=== PATIENT | female | born 1990 | race Caucasian/White ===

== ENCOUNTER → 2020-03-09 08:49 | Outpatient (BNVA) | payer MEDICAID, SELFPAY | PROVIDERS: Family Provider Family Medicine; Visit Provider Psychiatry & Neurology Psychiatry | DX: F41.1 Generalized anxiety disorder (principal); F90.2 Attention-deficit hyperactivity disorder, combined type; F43.10 Post-traumatic stress disorder, unspecified; Z72.820 Sleep deprivation | CPT/HCPCS: 90792 ==

== ENCOUNTER → 2020-04-29 10:47 | Outpatient (BNVA) | payer MEDICAID, SELFPAY | PROVIDERS: Family Provider Family Medicine; Visit Provider Psychiatry & Neurology Psychiatry | DX: F90.9 Attention-deficit hyperactivity disorder, unspecified type (principal); F90.2 Attention-deficit hyperactivity disorder, combined type; F43.10 Post-traumatic stress disorder, unspecified | CPT/HCPCS: 99213 ==

== ENCOUNTER → 2020-07-19 14:01 | Outpatient (BNVA) | payer MEDICAID, SELFPAY | PROVIDERS: Family Provider Family Medicine; Visit Provider Psychiatry & Neurology Psychiatry | DX: F90.2 Attention-deficit hyperactivity disorder, combined type; F43.10 Post-traumatic stress disorder, unspecified | CPT/HCPCS: 99214 ==

== ENCOUNTER 2020-10-15 20:01 | Emergency (ER) | payer MEDICAID, SELFPAY ==
[2020-10-15 20:09] VITALS: BP 121/75; PULSE 104; RESP 18; TEMP 36.7; O2SAT 97; BMI 36.8
--- NOTE | 2020-10-15 20:37 | W.ED.DENTAL ---
HPI - Dental/Oral General: Chief complaint: Dental/Oral Stated complaint: oral pain/n/v Time Seen by Provider: 10/15/20 20:24 Source: patient Mode of arrival: ambulatory Limitations: no limitations History of Present Illness: HPI Narrative: Patient is a 29-year-old female who presents to ED today with a complaint of right lower dental pain over the past few days. Patient states she woke up and noticed the right side of her face was swollen. She is not having any trouble swallowing. No fevers. MD Complaint: tooth pain (facial swelling) Onset (ago): day(s) Duration: constant Relieving factors: nothing Associated symptoms: Denies ear or mastoid pain, fever(s) or odynophagia Treatment prior to arrival: other (ibuprofen/tylenol) Review of Systems Const: Denies: fever(s), chills, body aches, fatigue or malaise Eyes: Denies: change in vision or blurry vision ENMT: Reports: dental pain; Denies: throat pain, enlarged tonsils, odynophagia, bleeding gums, ear or mastoid pain, ear discharge, nasal discharge, nasal congestion, post nasal drip or sinus pain Card: Denies: chest pain Resp: Denies: dyspnea GI: Denies: nausea or vomiting Musc: Denies: neck pain Skin/Breast: Denies: rash Neuro: Denies: headache(s) PFS ED PFSH: Medical History (Updated 10/15/20 @ 21:01 by VIVIAN Colon) ADHD PTSD (post-traumatic stress disorder) Social History (Updated 03/09/20 @ 09:00 by Susanne Tomas LPN) Smoking and tobacco status: current every day smoker e-cigarettes E-Cigarette Details: vaporizer device E-cig/vape details: 3mg Quit status (tobacco): not considering quitting Second hand smoke exposure: Yes Current gender identity: Female Female Reproductive History: Date of last menstrual period: 09/21/20 Physical Exam Const: COMMON NORMALS: no acute distress, patient oriented x3, no limitations and alert GENERAL APPEARANCE: cooperative HENMT: COMMON NORMALS: normocephalic, atraumatic, Normal nasal mucous membranes and turbinates present, moist oral mucous membranes and oropharynx normal HEAD & SCALP: normal to inspection, normocephalic and atraumatic FACE & SINUS: sinuses nontender FACE & SINUS IMAGES: 1. swelling; no drainable abscess at this time NOSE: Normal nasal mucous membranes and turbinates present TEETH & GINGIVA IMAGES: 1. severe dental caries Neck/C-Spine: COMMON NORMALS: full ROM and no lymphadenopathy OTHER: no submandibular swelling Neuro: COMMON NORMALS: patient oriented x3 SENSORIUM/ORIENTATION: Yes alert Course Vital Signs: Vital signs: Vital Signs Temperature 98.1 F 10/15/20 20:09 Pulse Rate 104 H 10/15/20 20:09 Respiratory Rate 18 10/15/20 20:09 Blood Pressure 121/75 10/15/20 20:09 Pulse Oximetry 97 10/15/20 20:09 Discharge Plan Discharge Patient Disposition: Home Clinical Impression: Dental caries, Dental abscess Condition: Stable Prescriptions: New clindamycin HCl 300 mg capsule 300 mg PO Q6H 7 Days Qty: 28 RF: 0 acetaminophen-codeine 300-30 mg tablet 1 tab PO Q6H PRN (Reason: pain) Qty: 10 RF: 0 No Action cephalexin [Keflex] 500 mg capsule 500 mg PO QID Qty: 40 RF: 0 dextroamphetamine-amphetamine [Adderall XR] 10 mg capsule,extended release 24hr 10 mg PO QAM 30 Days Qty: 30 RF: 0 Discharge Orders: Discharge ED (Routine); Ordered 10/15/20 Ordered By: Ailyn Jain Referrals: Chacorta Earl MD [Primary Care Provider] - Patient Instructions: Dental Caries (ED), Dental Abscess Coding Level of Care Code ED Sales Account Associate for Ezekiel Lorenzo
== END 2020-10-15 21:09 | disposition home or self-care (01) ==
PROVIDERS: Emergency Provider Physician Assistant; PCP Family Medicine
DX: K02.9 Dental caries, unspecified (principal); K04.7 Periapical abscess without sinus; F17.290 Nicotine dependence, other tobacco product, uncomplicated
CPT/HCPCS: 99282

== ENCOUNTER 2020-12-19 19:58 | Emergency (ER) | payer MEDICAID, SELFPAY ==
[2020-12-19 20:06] VITALS: BP 131/83; PULSE 75; RESP 15; TEMP 36.8; O2SAT 97; BMI 39.1
--- NOTE | 2020-12-19 20:20 | XRR_ITS ---
PROCEDURE INFORMATION: Exam: XR Abdomen Exam date and time: 12/19/2020 8:20 PM Age: 29 years old Clinical indication: Abdominal pain; Other: RT. Side; Prior surgery; Surgery date: 6+ months; Surgery type: ; Additional info: Abd pain TECHNIQUE: Imaging protocol: XR of the abdomen. Views: 2 Views. Upright and supine views. COMPARISON: US abdomen limited [id number] 12/21/2014 12:10 PM FINDINGS: Gastrointestinal tract: Normal. No bowel dilation. Intraperitoneal space: Normal. No free air. Bones/joints: Unremarkable for age. XR/XR abdomen min 2V [id number] IMPRESSION: No acute findings.
--- NOTE | 2020-12-19 20:20 | W.ED.ABDPA2 ---
HPI - Abdominal Pain General: Chief Complaint: Abdominal Pain Stated Complaint: lower abd pain/fever Time Seen by Provider: 12/19/20 20:17 History of Present Illness: HPI narrative: This patient is a 29-year-old female who presents to the emergency department with complaint of right lower quadrant abdominal pain superficially in her groin area. Patient states she feels like there is a knot in her groin. Patient also describes low-grade chills but denies taking her temperature. Patient states she has had loose stool intermittently for the past 3 to 4 days. Patient does not appear to be acutely sick. Patient's complaints appear to be nonspecific. Vital signs are stable negative exam. Will do medical evaluation treat MD elicited complaint: abdominal pain Pertinent past history: none Onset (ago): day(s) Pain Consistency: intermittent Severity: mild Associated Symptoms: Reports diarrhea; Denies chills, dysuria, fever(s), nausea and vomiting Related Data: Date of Last Menstrual Period: 11/30/20 Review of Systems General: Reports: 10 or more systems reviewed and unremarkable except in HPI and below Const: Denies: fever(s), chills, body aches or fatigue Eyes: Denies: change in vision or blurry vision ENMT: Denies: throat pain, hoarseness or mouth pain Card: Denies: chest pain, palpitations, irregular heart rhythm, edema, swelling of feet/ankles or lightheadedness Resp: Denies: dyspnea, productive cough, non-productive cough, wheezing or pain on inspiration GI: Reports: abdominal pain and diarrhea; Denies: nausea or vomiting : Denies: flank pain, difficulty voiding, dysuria, urinary frequency, urinary urgency or urinary hesitancy Musc: Denies: neck pain, back pain, extremity pain, extremity swelling, joint pain, joint swelling, joint redness, joint warmth or limited range of motion Skin/Breast: Denies: rash, pruritus, erythema or skin tenderness Neuro: Denies: headache(s), numbness in extremities or weakness in extremities Psych: Denies: anxiety or depression PFSH ED PFSH: Medical History ADHD PTSD (post-traumatic stress disorder) Social History Smoking and tobacco status: current every day smoker e-cigarettes E-Cigarette Details: vaporizer device E-cig/vape details: 3mg Quit status (tobacco): not considering quitting Second hand smoke exposure: Yes Current gender identity: Female Female Reproductive History: Date of last menstrual period: 11/30/20 Physical Exam Const: COMMON NORMALS: no acute distress, average body habitus, patient oriented x3, no limitations, healthy appearing, alert and well nourished HENMT: COMMON NORMALS: normocephalic, atraumatic, hearing grossly normal bilaterally, external ears normal, EAC's normal, TM's normal bilaterally, Normal external nose present, Normal nasal mucous membranes and turbinates present, moist oral mucous membranes, oropharynx normal, dentition normal and gingiva normal HEAD & SCALP: normocephalic and atraumatic NOSE: Normal external nose present and Normal nasal mucous membranes and turbinates present EXTERNAL EAR: Yes external ears normal EXTERNAL AUDITORY CANAL: EAC's normal TYMPANIC MEMBRANE: TM's normal bilaterally Neck/C-Spine: COMMON NORMALS: full ROM, no lymphadenopathy, supple, no meningeal signs, no JVD, Thyroid normal and No carotid bruits THYROID: Thyroid normal Chest: COMMONS NORMALS: normal inspection of the chest, normal palpation of entire chest wall, normal inspection of the breasts and normal palpation of the breasts Breast/axilla inspection: Yes normal inspection of the breasts BREAST/AXILLA PALPATION: Yes normal palpation of the breasts Resp: COMMON NORMALS: normal respiratory effort, No retractions, No use of accessory muscles, clear to auscultation bilaterally and percussion normal AUSCULTATION: clear to auscultation bilaterally PERCUSSION: percussion normal Cardio: COMMON NORMALS: no JVD, regular rate, regular rhythm, S1 normal heart sound present, S2 normal heart sound present, No gallops present (Cardio), No clicks present (Cardio), No murmurs present (Cardio), No rub (Cardio) and Peripheral pulses 2+ throughout RATE: regular rate RHYTHM: regular rhythm HEART SOUNDS: S1 normal heart sound present and S2 normal heart sound present PERIPHERAL PULSES: Peripheral pulses 2+ throughout GI: COMMON NORMALS: Normal to inspection, nondistended, normoactive bowel sounds present, Soft to palpation, non-tender, No hepatosplenomegaly present, no masses and no bruits PALPATION: Yes Soft to palpation and Yes No hepatosplenomegaly present Back/Pelvis: COMMON NORMALS: thoracic and lumbar spine normal to inspection, no thoracic nor lumbar tenderness, thoraco-lumbar ROM normal and straight leg raise negative bilaterally Extremity: COMMON NORMALS: normal to inspection, full ROM, capillary refill normal, no joint enlargement, no clubbing, cyanosis or edema, no calf tenderness and no pedal edema Neuro: COMMON NORMALS: patient oriented x3 SENSORIUM/ORIENTATION: Yes alert MENINGEAL SIGNS: Yes no meningeal signs Course Reevaluation(s): Reevaluation #1: Negative evaluation in the emergency department for any acute findings. Patient given reassurance. Encourage p.o. fluids. Tylenol Motrin as needed. Follow-up with PCP in 2 to 3 days. Time: 21:05 Vital Signs: Vital signs: Vital Signs Temperature 98.3 F 12/19/20 20:06 Pulse Rate 75 12/19/20 20:06 Respiratory Rate 15 12/19/20 20:06 Blood Pressure 131/83 12/19/20 20:06 Pulse Oximetry 97 12/19/20 20:06 MDM - Abdominal Pain MDM Narrative: Medical decision making narrative: Negative evaluation in the emergency department for any acute findings. Patient given reassurance. Encourage p.o. fluids. Tylenol Motrin as needed. Follow-up with PCP in 2 to 3 days. Differential Diagnosis: Differential diagnosis abdominal pain: Likely abdominal pain, acute appendicitis, calculus of kidney, constipation, diverticulitis, endometriosis, gastroenteritis, pancreatitis and small bowel obstruction Medical Records: Attestation: I reviewed the patient's medical records. Lab Data: Attestation: I reviewed the patient's lab results. Labs: Lab Results 12/19/20 12/19/20 Range/Units 20:45 20:45 HCG, Qual Negative (Negative) Urine Color Yellow (Yellow) Urine Appearance Clear (CLEAR) Urine pH 7 (5-7) Ur Specific Gravit y 1.010 (1.005-1.030) Urine Protein Neg (Negative) Urine Glucose (UA) Norm (Normal) Urine Ketones Negative (Negative) Urine Blood 3+ H (Negative) Urine Nitrate Negative (Negative) Urine Bilirubin Neg (Negative) Urine Urobilinogen Norm (Negative) mg/dL Ur Leukocyte Enriqueta ase Negative (Negative) Urine RBC >100 H (0-2) /hpf Urine WBC 0-4 H (0-5) /hpf Ur Squamous Epith Cells 0-4 H (0-5) /hpf Amorphous Sediment Not Reportable Urine Bacteria Trace (NONE) /hpf Discharge Plan Discharge Patient Disposition: Home Clinical Impression: Nonspecific abdominal pain, Passage of loose stools Condition: Stable Prescriptions: No Action cephalexin [Keflex] 500 mg capsule 500 mg PO QID Qty: 40 RF: 0 dextroamphetamine-amphetamine [Adderall XR] 10 mg capsule,extended release 24hr 10 mg PO QAM 30 Days Qty: 30 RF: 0 acetaminophen-codeine 300-30 mg tablet 1 tab PO Q6H PRN (Reason: pain) Qty: 10 RF: 0 Discharge Orders: Discharge ED (Routine); Ordered 12/19/20 Ordered By: Suman Sarabia Referrals: Chacorta Earl MD [Primary Care Provider] - Discharge Diet: Advance as tolerated Discharge Activity: Resume usual activity Patient Instructions: Opioid Safety, Abdominal Pain (ED) Activity Restrictions/Additional Instructions: Encourage p.o. fluids. Tylenol Motrin as needed as needed for pain. Ice packs as needed. Follow-up with PCP in 2 to 3 days. Pepto-Bismol as needed for loose stools. Coding Level of Care Code ED Traffic Engineering Director for Chg Fwd Exam Comprehensive
[2020-12-19 20:54] LABS: HCG Qualitative Urine. Negative (Negative)
[2020-12-19 21:00] LABS: Add Urine Microscopic? YES; Bilirubin Urine Neg (Negative); Blood Urine 3+ (Negative); Glucose Urine UA Norm (Normal); Ketones Urine Negative (Negative); Leukocyte Esterase Urine Negative (Negative); Nitrate Urine Negative (Negative); Protein Urine Neg (Negative); Urine Appearance Clear (CLEAR); Urine Color Yellow (Yellow); Urobilinogen Urine Norm (Negative); pH Urine 7 (5-7)
[2020-12-19 21:04] LABS: Add Urine Culture? Yes; Bacteria Urine TRACE /hpf; RBC Urine >100 /hpf (0-2); Squamous Epithelial Cell Urine 0-4 /hpf (0-5); WBC Urine 0-4 /hpf (0-5)
== END 2020-12-19 21:23 | disposition home or self-care (01) ==
PROVIDERS: Emergency Provider Emergency Medicine; PCP Family Medicine
DX: R10.9 Unspecified abdominal pain (principal); R19.7 Diarrhea, unspecified; F17.290 Nicotine dependence, other tobacco product, uncomplicated
CPT/HCPCS: 74019; 81001; 81025; 87086; 99283

== ENCOUNTER → 2021-01-17 13:00 | Outpatient (BNVA) | payer MEDICAID, SELFPAY | PROVIDERS: PCP Family Medicine; Visit Provider Psychiatry & Neurology Psychiatry | DX: F90.2 Attention-deficit hyperactivity disorder, combined type (principal); F43.10 Post-traumatic stress disorder, unspecified | CPT/HCPCS: 99214 ==

== ENCOUNTER 2021-03-11 13:54 | Emergency (ER) | payer MEDICAID, SELFPAY ==
[2021-03-11] VITALS (9 sets, daily range): BP systolic 100–149; BP diastolic 66–88; PULSE 61–100; RESP 18–32; TEMP 36.5–36.7; O2SAT 95–100; BMI 39.1
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
--- NOTE | 2021-03-11 17:24 | PC.NURSE ---
Pt to room 15. Pt to bathroom to change and collect urine sample. C Collar in place
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
[2021-03-11] MEDS: HYDROcodone-acetaminophen 5-325 mg Tablet 2 TAB PO (18:32)
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
--- NOTE | 2021-03-11 18:45 | PC.NURSE ---
pt c/o about itching and noted red hives on LE and it itches pain per pt. Pt stated she had taken Vicodin before and never had any problems before. Notified provider, provider to bedside.
[2021-03-11] MEDS: diphenhydrAMINE 50 mg Capsule PO (18:53)
--- NOTE | 2021-03-11 19:10 | PC.NURSE ---
pt appears to be sleepy per pt and no more itching. Pt stated I feel better Pain 5/10 and going lower per pt.
[2021-03-11 19:47] LABS: Basophils % 0.3 %; Eosinophils # 0.1 10^3/uL (0.0-0.8); Eosinophils % 1.1 %; Hematocrit 42.2 % (37.0-47.0); Hemoglobin 13.5 g/dL (11.5-15.3); Lymphocytes % 31.2 %; Mean Corpuscular Hemoglobin 29.9 pg (28.0-34.0); Mean Corpuscular Volume 93.4 fl (81-99); Monocytes # 0.3 10^3/uL (0.2-0.9); Monocytes % 4.6 %; Neutrophils # 3.95 10^3/uL (1.8-7.7); Neutrophils % 62.6 %; Nucleated Red Blood Cells % 0 %; Platelet Count 232 10^3/cmm (130-400); Red Blood Count 4.52 10^6/uL (4.1-5.3); Red Cell Distribution Width 12.5 % (12.1-15.1); White Blood Count 6.3 10^3/uL (4.0-10.0)
[2021-03-11 20:09] LABS: Alanine Aminotransferase 38 U/L (0-33); Albumin Level 4.1 g/dL (3.5-5.2); Alkaline Phosphatase 62 IU/L (35-105); Blood Urea Nitrogen 12 mg/dL (6-20); Carbon Dioxide 20 mmol/L (22-29); Chloride 108 mmol/L (98-107); Globulin 3.2 g/dL (1.3-4.6); Glomerular Filtration Rate 145.9 mL/min (90-130); Glucose 83 mg/dL (65-115); Osmolality Calculated 295 mOsm/kg (285-295); Sodium 143 mmol/L (136-145); Total Bilirubin 0.3 mg/dL (0.15-1.2); Total Protein 7.3 g/dL (6.6-8.7)
[2021-03-11 20:12] LABS: Anion Gap 18.8 (5-19); Potassium 3.8 mmol/L (3.5-5.1)
[2021-03-11 20:13] LABS: Aspartate Amino Transferase 24 U/L (0-32)
== END 2021-03-11 21:49 | disposition home or self-care (01) ==
PROVIDERS: Family Medicine; Emergency Provider Emergency Medicine
DX: S80.01XA Contusion of right knee, initial encounter (principal); S06.0X0A Concussion without loss of consciousness, initial encounter; S40.011A Contusion of right shoulder, initial encounter; F17.290 Nicotine dependence, other tobacco product, uncomplicated; V89.2XXA Person injured in unspecified motor-vehicle accident, traffic, initial encounter
CPT/HCPCS: 70450; 72040; 73030; 73080; 73130; 73562; 73590; 80053; 85025; 99284; Q0163

== ENCOUNTER 2021-07-17 11:16 | Emergency (ER) | payer MEDICAID, SELFPAY ==
[2021-07-17 12:12] VITALS: BP 120/78; PULSE 83; RESP 18; TEMP 36.9; O2SAT 120; BMI 39.4
--- NOTE | 2021-07-17 12:21 | ED_ITS ---
HPI - Skin/Abscess/Foreign Bdy General: Chief complaint: Skin/Abscess/Foreign Body Stated complaint: LUMP UNDER RIGHT ARM Time Seen by Provider: 07/17/21 12:17 Source: patient Mode of arrival: ambulatory Limitations: no limitations History of Present Illness: Patient is a 30-year-old female presents to ED today for concerns of an abscess to her right axilla. Patient states yesterday she noticed a small pimple-like lesion that she tried to squeeze but states this morning area was larger and more painful. Patient states she has had a history of previous abscesses and does have a history of MRSA. She has not noticed any drainage from the area. No fevers, chills, body aches. MD complaint: abscess/boil Onset (ago): day(s) (yesterday) Tetanus up to date: yes Location: RUE (axilla) Severity: moderate Pain Consistency: constant Relieving factors: none Exacerbating factors: movement Associated symptoms: Reports no associated symptoms; Deny chills or fever(s) Treatments prior to arrival: other (tried squeezing it) Review of Systems Const: Denies: fever(s), chills, body aches, fatigue or malaise Skin/Breast: Reports: other (R axillary pain/swelling/possible abscess) PFS ED PFSH: Medical History ADHD Psychiatric care PTSD (post-traumatic stress disorder) Social History Smoking and tobacco status: current every day smoker e-cigarettes E-Cigarette Details: vaporizer device E-cig/vape details: 3mg Quit status (tobacco): not considering quitting Second hand smoke exposure: Yes Current gender identity: Female Female Reproductive History: Date of last menstrual period: 06/10/21 Physical Exam Const: COMMON NORMALS: no acute distress, patient oriented x3, no limitations and alert NUTRITIONAL APPEARANCE: obese Resp: COMMON NORMALS: normal respiratory effort and clear to auscultation bilaterally AUSCULTATION: clear to auscultation bilaterally Cardio: COMMON NORMALS: regular rate and regular rhythm RATE: regular rate RHYTHM: regular rhythm Extremity: GENERAL: Yes normal exam except as noted OTHER: pt has an indurated area measuring approximately 2x2cm to R axilla; no obvious erythema/warmth; no fluctuance or drainage noted; area is not freely mobile Neuro: COMMON NORMALS: patient oriented x3, moves all extremities, no focal motor deficits and no sensory deficits noted SENSORIUM/ORIENTATION: Yes alert Skin: NARRATIVE SKIN EXAM: see extremity assessment for pertinent skin findings Course Vital Signs: Vital signs: Vital Signs Temperature 98.4 F 07/17/21 12:12 Pulse Rate 77 07/17/21 12:25 Respiratory Rate 16 07/17/21 12:25 Blood Pressure 111/71 07/17/21 12:25 Pulse Oximetry 97 07/17/21 12:25 MDM - Skin/Abscess/Foreign Bdy Medicial Decision Making DDx-early abscess vs inflamed lymph node. Clinical clue of a pimple like lesion yesterday and history of previous staph abscesses makes this more likely. Area is indurated without fluctuance and I don't believe amendable to I&D at this time. Will place on Bactrim as she has a history of MRSA. Recommend follow up on Saturday if area continues to worsen despite antibiotic therapy- discussed how drainage may be indicated at that time. Discharge Plan Discharge Patient Disposition: Home Clinical Impression: Abscess of axilla, right Condition: Stable Prescriptions: New ibuprofen 800 mg tablet 800 mg PO Q8H PRN (Reason: pain) Qty: 15 0RF Bactrim DS 800-160 mg tablet 2 tab PO BID 7 Days Qty: 28 0RF Discontinued clindamycin HCl 300 mg capsule 300 mg PO TID Qty: 21 0RF tramadol 50 mg tablet 50 mg PO Q8H PRN (Reason: pain) Qty: 14 0RF No Action dextroamphetamine-amphetamine [Adderall XR] 10 mg capsule,extended release 24hr 10 mg PO QAM 30 Days Qty: 30 0RF Discharge Orders: Discharge ED (Routine); Ordered 07/17/21 Ordered By: Ailyn Jain Patient Instructions: Sulfamethoxazole/Trimethoprim (By mouth) (Bactrim, Bactrim DS,..., Abscess (ED) Stand Alone Forms: Work/School Release Coding Level of Care Code ED Criminal Justice Department Chair for Ezekiel Lorenzo
[2021-07-17 12:25] VITALS: BP 111/71; PULSE 77; RESP 16; O2SAT 97
== END 2021-07-17 13:04 | disposition home or self-care (01) ==
PROVIDERS: Emergency Provider Physician Assistant
DX: L02.411 Cutaneous abscess of right axilla (principal); F17.290 Nicotine dependence, other tobacco product, uncomplicated
CPT/HCPCS: 99282

== ENCOUNTER 2021-07-18 13:42 | Emergency (ER) | payer MEDICAID, SELFPAY ==
[2021-07-18 14:04] VITALS: BP 117/72; PULSE 88; RESP 16; TEMP 36.7; O2SAT 97
--- NOTE | 2021-07-18 16:12 | ED_ITS ---
HPI - Skin/Abscess/Foreign Bdy General: Chief complaint: Wound/Laceration Stated complaint: Lump under arm, hurts and shoots pain up neck Time Seen by Provider: 07/18/21 15:48 Source: patient Mode of arrival: ambulatory Limitations: no limitations History of Present Illness: Patient is a 30-year-old female who presents to the ED again for evaluation of her right axillary abscess. I personally saw marcial doherty yesterday and abscess at that time was very indurated and not amendable to I&D. She states today it feels larger and is more painful. She has been taking her Bactrim as prescribed. Lesion has not been draining. No fevers, chills, body aches. MD complaint: abscess/boil Onset (ago): day(s) Tetanus up to date: yes Location: RUE (R axilla) Pain Consistency: constant Associated symptoms: Reports no associated symptoms; Deny chills or fever(s) Treatments prior to arrival: antibiotic Review of Systems Const: Denies: fever(s), chills, body aches, fatigue or malaise Skin/Breast: Reports: other (R axillary abscess) Neuro: Denies: numbness in extremities, weakness in extremities or sensory changes [facility] ED PFSH: Medical History ADHD Psychiatric care PTSD (post-traumatic stress disorder) Social History Smoking and tobacco status: current every day smoker e-cigarettes E-Cigarette Details: vaporizer device E-cig/vape details: 3mg Quit status (tobacco): not considering quitting Second hand smoke exposure: Yes Current gender identity: Female Female Reproductive History: Date of last menstrual period: 06/10/21 Physical Exam Const: COMMON NORMALS: no acute distress, patient oriented x3, no limitations and alert NUTRITIONAL APPEARANCE: overweight Extremity: NARRATIVE EXTREMITY EXAM: R axillary abscess-slightly larger than yesterday-now with some very faint overlying erythema; there is one small area centrally that appears slightly fluctuant so we will attempt I&D here Neuro: COMMON NORMALS: patient oriented x3, moves all extremities, no focal motor deficits and no sensory deficits noted SENSORIUM/ORIENTATION: Yes alert Procedures Abscess I/D Site: upper extremity (R axilla) Side (if applicable): right Local Anesthetic: lidocaine 1% Amount of anesthesia used (mL): 4.0 Technique: incised with #11 blade Amount of fluid expressed (mL): 2.0 Irrigation: No Packing used?: plain Course Vital Signs: Vital signs: Vital Signs Temperature 98.0 F 07/18/21 14:04 Pulse Rate 88 07/18/21 14:04 Respiratory Rate 16 07/18/21 14:04 Blood Pressure 117/72 07/18/21 14:04 Pulse Oximetry 97 07/18/21 14:04 MDM - Skin/Abscess/Foreign Bdy Medicial Decision Making Incision and drainage performed on abscess and a small amount of bloody purulent drainage noted. Cultures collected. Cavity was packed. She will be recommended to continue her Bactrim as prescribed. Patient can remove the packing on her own in 48 to 72 hours if abscess improves. She will need to return here in 48 hours if abscess is not improving and certainly if worsening despite antibiotic therapy. Discharge Plan Discharge Patient Disposition: Home Clinical Impression: Abscess of axilla, right Condition: Stable Prescriptions: New tramadol 50 mg tablet 50 mg PO Q6H PRN (Reason: pain) Qty: 10 0RF No Action dextroamphetamine-amphetamine [Adderall XR] 10 mg capsule,extended release 24hr 10 mg PO QAM 30 Days Qty: 30 0RF ibuprofen 800 mg tablet 800 mg PO Q8H PRN (Reason: pain) Qty: 15 0RF Bactrim DS 800-160 mg tablet 2 tab PO BID 7 Days Qty: 28 0RF Discharge Orders: Discharge ED (Routine); Ordered 07/18/21 Ordered By: Ailyn Jain Patient Instructions: Abscess Follow-up (ED), Abscess Incision and Drainage (DC) Stand Alone Forms: Work/School Release Coding Level of Care Code ED Iuss Master Analyst for Ezekiel Lorenzo
== END 2021-07-18 16:44 | disposition home or self-care (01) ==
PROVIDERS: Emergency Provider Physician Assistant
DX: L02.411 Cutaneous abscess of right axilla (principal); F17.290 Nicotine dependence, other tobacco product, uncomplicated
CPT/HCPCS: 10060; 99281

== ENCOUNTER → 2021-09-12 14:41 | Outpatient (BNVA) | payer MEDICAID, SELFPAY | PROVIDERS: Visit Provider Psychiatry & Neurology Psychiatry | DX: F90.2 Attention-deficit hyperactivity disorder, combined type (principal); F43.10 Post-traumatic stress disorder, unspecified | CPT/HCPCS: 99214 ==

== ENCOUNTER 2021-09-13 01:02 | Emergency (ER) | payer MEDICAID, SELFPAY ==
[2021-09-13 01:13] VITALS: BP 135/75; PULSE 55; RESP 20; TEMP 36.4; O2SAT 100; BMI 38.9
--- NOTE | 2021-09-13 01:25 | CTR_ITS ---
PROCEDURE INFORMATION: Exam: CT Abdomen And Pelvis With Contrast Exam date and time: 09/13/2021 2:18 AM Age: 30 years old Clinical indication: Nausea and vomiting; Abdominal pain; Generalized; Prior surgery; Surgery type: Csection x3; Patient HX: C/O abd pain with n/v. ; Additional info: Abdpain TECHNIQUE: Imaging protocol: Computed tomography of the abdomen and pelvis with contrast. Radiation optimization: All CT scans at this facility use at least one of these dose optimization techniques: automated exposure control; mA and/or kV adjustment per patient size (includes targeted exams where dose is matched to clinical indication); or iterative reconstruction. Contrast material: OMNI 300; Contrast volume: 95 ml; Contrast route: INTRAVENOUS (IV); COMPARISON: CR XR abdomen min 2V [id number] 12/19/2020 8:35 PM RADIATION DOSE METRICS: Total DLP (mGy-cm): 1698.24 FINDINGS: Diaphragm: Small hiatal hernia. Liver: Hepatomegaly longitudinal diameter 21.8 cm. Gallbladder and bile ducts: Normal. No calcified stones. No ductal dilation. Pancreas: Normal. No ductal dilation. Spleen: Normal. No splenomegaly. Adrenal glands: Normal. No mass. Kidneys and ureters: Normal. No hydronephrosis. Stomach and bowel: Slight irregularity or edema of the mucosa of small bowel left abdomen with slight abdominal mesenteric congestion or edema. Slight accentuation of the gastric folds. Appendix: No evidence of appendicitis. Intraperitoneal space: See Stomach and bowel finding. Vasculature: Unremarkable. No abdominal aortic aneurysm. Lymph nodes: Scattered small mesenteric lymph nodes. Urinary bladder: Unremarkable as visualized. Reproductive: Unremarkable as visualized. Small functional cyst left ovary. Bones/joints: Unremarkable. No acute fracture. Soft tissues: Minimal umbilical hernia containing mesenteric fat. CT/CT abdomen pelvis w con* [id number] IMPRESSION: 1. Accentuation small bowel mucosa which may reflect ileus or enteritis. 2. Abdominal mesenteric congestion or edema. 3. Hepatomegaly. 4. Slight accentuated gastric folds. Question gastritis.
--- NOTE | 2021-09-13 01:26 | W.ED.NAVMDI ---
HPI - Nausea/Vomiting/Diarrhea General: Chief complaint: Nausea/Vomiting/Diarrhea Stated complaint: Vomiting for two days, Lower back pain Time Seen by Provider: 09/13/21 01:05 Source: patient Mode of arrival: ambulatory Limitations: no limitations History of Present Illness: 30-year-old female who states that she has had nausea vomiting also abdominal pain over the last week with a getting much worse the last 3 to 4 hours she states that multiple episodes of vomiting unable to keep anything down. States she has severe diffuse abdominal cramping she rates a 6 out of 10. Denies any fevers denies any sick contacts denies any worsening improving factors. Associated nausea: Yes Associated symtoms: Reports nausea; Denies chest pain, dysuria or headache(s) Review of Systems Const: Denies: fever(s), chills, body aches or change in appetite Eyes: Denies: blurry vision or eye discomfort ENMT: Denies: throat pain or dental pain Card: Denies: chest pain Resp: Denies: dyspnea GI: Reports: abdominal pain, nausea and vomiting : Denies: dysuria Musc: Denies: neck pain or back pain Skin/Breast: Denies: rash Neuro: Denies: headache(s) Psych: Denies: depression Dino/Lymph: Denies: easy bruising All/Imm: Denies: urticaria PFSH ED PFSH: Medical History ADHD Psychiatric care PTSD (post-traumatic stress disorder) Social History Smoking and tobacco status: current every day smoker e-cigarettes E-Cigarette Details: vaporizer device E-cig/vape details: 3mg Quit status (tobacco): not considering quitting Second hand smoke exposure: Yes Current gender identity: Female Female Reproductive History: Date of last menstrual period: 06/10/21 Physical Exam Const: COMMON NORMALS: no acute distress, patient oriented x3 and healthy appearing HENMT: COMMON NORMALS: normocephalic and atraumatic HEAD & SCALP: normocephalic and atraumatic Eye: COMMON NORMALS: Equal, round and reactive pupils present and EOMs intact bilaterally PUPIL: Yes Equal, round and reactive pupils present Neck/C-Spine: COMMON NORMALS: full ROM and supple Chest: COMMONS NORMALS: normal inspection of the chest and normal palpation of entire chest wall Resp: COMMON NORMALS: normal respiratory effort, No retractions, No use of accessory muscles and clear to auscultation bilaterally AUSCULTATION: clear to auscultation bilaterally Cardio: COMMON NORMALS: regular rate, regular rhythm and No murmurs present (Cardio) RATE: regular rate RHYTHM: regular rhythm GI: COMMON NORMALS: Normal to inspection, nondistended, normoactive bowel sounds present, Soft to palpation, non-tender and no masses PALPATION: Yes Soft to palpation Extremity: COMMON NORMALS: normal to inspection and full ROM Neuro: COMMON NORMALS: patient oriented x3, moves all extremities and no focal motor deficits Psych: COMMON NORMALS: mental status grossly normal, Normal thought process present and cooperative THOUGHT PROCESS: Normal thought process present Skin: COMMON NORMALS: no rashes or lesions noted and no wounds GENERAL SKIN EXAM: no rashes or lesions noted Course Vital Signs: Vital signs: Vital Signs Temperature 97.6 F 09/13/21 01:13 Pulse Rate 80 09/13/21 02:50 Respiratory Rate 18 09/13/21 02:50 Blood Pressure 126/45 09/13/21 02:50 Pulse Oximetry 98 09/13/21 02:50 MDM - Nausea/Vomiting/Diarrhea Medical Decision Making Patient presents here with abdominal pain she feels much improved here exam at discharge benign patient's blood work and CT scan shows no acute surgical findings. We will place her on Protonix for possible gastritis and Zofran. She is to follow-up with PCP and return if worsening. Lab Data : 09/13/21 01:46 09/13/21 01:46 Radiology Impressions Abdomen/Pelvis CT 09/13/21 01:25 IMPRESSION: 1. Accentuation small bowel mucosa which may reflect ileus or enteritis. 2. Abdominal mesenteric congestion or edema. 3. Hepatomegaly. 4. Slight accentuated gastric folds. Question gastritis. Laboratory Results WBC 8.6 10^3/uL (4.0-10.0) 09/13/21 01:46 RBC 5.03 10^6/uL (4.1-5.3) 09/13/21 01:46 Hgb 14.8 g/dL (11.5-15.3) 09/13/21 01:46 Hct 45.3 % (37.0-47.0) 09/13/21 01:46 MCV 90.1 fl (81-99) 09/13/21 01:46 MCH 29.4 pg (28.0-34.0) 09/13/21 01:46 MCHC 32.7 g/dL (30.0-36.0) 09/13/21 01:46 RDW 12.4 % (12.1-15.1) 09/13/21 01:46 Plt Count 255 10^3/cmm (130-400) 09/13/21 01:46 MPV 10.9 fL (7.4-10.4) H 09/13/21 01:46 Neut % (Auto) 82.3 % 09/13/21 01:46 Lymph % (Auto) 12.5 % 09/13/21 01:46 Rhea % (Auto) 3.9 % 09/13/21 01:46 Eos % (Auto) 0.2 % 09/13/21 01:46 Baso % (Auto) 0.4 % 09/13/21 01:46 Neut # (Auto) 7.06 10^3/uL (1.8-7.7) 09/13/21 01:46 Lymph # (Auto) 1.1 10^3/uL (0.8-4.8) 09/13/21 01:46 Rhea # (Auto) 0.3 10^3/uL (0.2-0.9) 09/13/21 01:46 Eos # (Auto) 0.0 10^3/uL (0.0-0.8) 09/13/21 01:46 Baso # (Auto) 0.0 10^3/uL (0.0-0.1) 09/13/21 01:46 Nucleated RBC % (auto) 0 % 09/13/21 01:46 Nucleated RBCs # 0.0 /100WBC 09/13/21 01:46 Sodium 140 mmol/L (136-145) 09/13/21 01:46 Potassium 3.9 mmol/L (3.5-5.1) 09/13/21 01:46 Chloride 103 mmol/L (98-107) 09/13/21 01:46 Carbon Dioxide 21 mmol/L (22-29) L 09/13/21 01:46 Anion Gap 19.9 (5-19) H 09/13/21 01:46 BUN 6 mg/dL (6-20) 09/13/21 01:46 Creatinine 0.9 mg/dL (0.5-0.9) 09/13/21 01:46 GFR Calculation 74.0 mL/min (90-130) L 09/13/21 01:46 Glucose 120 mg/dL (65-115) H 09/13/21 01:46 Calculated Osmolality 289 mOsm/kg (285-295) 09/13/21 01:46 Calcium 10.2 mg/dL (8.5-10.5) 09/13/21 01:46 Total Bilirubin 0.6 mg/dL (0.15-1.2) 09/13/21 01:46 AST 15 U/L (0-32) 09/13/21 01:46 ALT 12 U/L (0-33) 09/13/21 01:46 Alkaline Phosphatase 70 IU/L (35-105) 09/13/21 01:46 Total Protein 8.2 g/dL (6.6-8.7) 09/13/21 01:46 Albumin 4.9 g/dL (3.5-5.2) 09/13/21 01:46 Globulin 3.3 g/dL (1.3-4.6) 09/13/21 01:46 Lipase 14 U/L (13-60) 09/13/21 01:46 HCG, Qual Negative (Negative) 09/13/21 01:46 Urine Color Yellow (Yellow) 09/13/21 02:02 Urine Appearance Clear (CLEAR) 09/13/21 02:02 Urine pH 8 (5-7) H 09/13/21 02:02 Ur Specific Black 1.020 (1.005-1.030) 09/13/21 02:02 Urine Protein Neg (Negative) 09/13/21 02:02 Urine Glucose (UA) Norm (Normal) 09/13/21 02:02 Urine Ketones Negative (Negative) 09/13/21 02:02 Urine Blood Neg (Negative) 09/13/21 02:02 Urine Nitrate Negative (Negative) 09/13/21 02:02 Urine Bilirubin 1+ (Negative) H 09/13/21 02:02 Prot Sulfosalicylic Acd Negative (Negative) 09/13/21 02:02 Urine Urobilinogen Norm mg/dL (Negative) 09/13/21 02:02 Ur Leukocyte Esterase Negative (Negative) 09/13/21 02:02 Discharge Plan Discharge Patient Disposition: Home Clinical Impression: Vomiting Abdominal pain Qualifiers: Abdominal location: generalized Qualified Code(s): R10.84 - Generalized abdominal pain Condition: Stable Prescriptions: New hydrocodone-acetaminophen 5-325 mg tablet 1 tab PO Q6H PRN (Reason: pain) Qty: 14 0RF Protonix 40 mg tablet,delayed release (DR/EC) 40 mg PO DAILY Qty: 60 0RF ondansetron 4 mg tablet,disintegrating 4 mg PO Q6H PRN (Reason: nausea and vomiting) Qty: 14 0RF No Action tramadol 50 mg tablet 50 mg PO Q6H PRN (Reason: pain) 0RF Label Comments: Patient no longer taking. dextroamphetamine-amphetamine [Adderall XR] 10 mg capsule,extended release 24hr 10 mg PO QAM 30 Days Qty: 30 0RF ibuprofen 800 mg tablet 800 mg PO Q8H PRN (Reason: pain) Qty: 15 0RF Discharge Orders: Discharge ED (Routine); Ordered 09/13/21 Ordered By: Odalys Roberts Discharge Diet: Advance as tolerated Discharge Activity: Resume usual activity Patient Instructions: Abdominal Pain (ED), Opioid Safety Coding Level of Care Code ED Information Systems Supervisor for Ezekiel Fwjose Exam Comprehensive
[2021-09-13] MEDS: ondansetron 2 mg/ML SDV 2 mL 4 MG IVP ×2 (01:40→02:50)
[2021-09-13] MEDS: sodium chloride 0.9% 1,000 ML 999 ML IV (01:49)
[2021-09-13 01:50] VITALS: BP 116/62; PULSE 64; RESP 22; O2SAT 100
[2021-09-13 01:51] LABS: Basophils % 0.4 %; Eosinophils % 0.2 %; Hematocrit 45.3 % (37.0-47.0); Hemoglobin 14.8 g/dL (11.5-15.3); Lymphocytes # 1.1 10^3/uL (0.8-4.8); Lymphocytes % 12.5 %; Mean Corpuscular HGB Conc 32.7 g/dL (30.0-36.0); Mean Corpuscular Hemoglobin 29.4 pg (28.0-34.0); Mean Corpuscular Volume 90.1 fl (81-99); Mean Platelet Volume 10.9 fL (7.4-10.4); Monocytes # 0.3 10^3/uL (0.2-0.9); Monocytes % 3.9 %; Neutrophils # 7.06 10^3/uL (1.8-7.7); Neutrophils % 82.3 %; Nucleated Red Blood Cells % 0 %; Platelet Count 255 10^3/cmm (130-400); Red Blood Count 5.03 10^6/uL (4.1-5.3); Red Cell Distribution Width 12.4 % (12.1-15.1); White Blood Count 8.6 10^3/uL (4.0-10.0)
[2021-09-13 02:06] LABS: Add Urine Microscopic? NO; Charge for UA Resulting for Rev
[2021-09-13 02:07] LABS: HCG, Serum Qual Negative (Negative)
[2021-09-13 02:13] LABS: Bilirubin Urine 1+ (Negative); Blood Urine Neg (Negative); Glucose Urine UA Norm (Normal); Ketones Urine Negative (Negative); Leukocyte Esterase Urine Negative (Negative); Nitrate Urine Negative (Negative); Protein Urine Neg (Negative); Sulfosalicylic Acid Urine Negative (Negative); Urine Appearance Clear (CLEAR); Urine Color Yellow (Yellow); Urobilinogen Urine Norm (Negative); pH Urine 8 (5-7)
[2021-09-13 02:16] LABS: Alanine Aminotransferase 12 U/L (0-33); Albumin Level 4.9 g/dL (3.5-5.2); Alkaline Phosphatase 70 IU/L (35-105); Anion Gap 19.9 (5-19); Aspartate Amino Transferase 15 U/L (0-32); Blood Urea Nitrogen 6 mg/dL (6-20); Calcium 10.2 mg/dL (8.5-10.5); Carbon Dioxide 21 mmol/L (22-29); Chloride 103 mmol/L (98-107); Globulin 3.3 g/dL (1.3-4.6); Glucose 120 mg/dL (65-115); Lipase 14 U/L (13-60); Osmolality Calculated 289 mOsm/kg (285-295); Potassium 3.9 mmol/L (3.5-5.1); Sodium 140 mmol/L (136-145); Total Bilirubin 0.6 mg/dL (0.15-1.2); Total Protein 8.2 g/dL (6.6-8.7)
[2021-09-13] MEDS: iohexol 300 mg/mL 100 mL Btl IV (02:16)
[2021-09-13 02:20] VITALS: BP 143/55; PULSE 66; RESP 18; O2SAT 99
[2021-09-13 02:50] VITALS: BP 126/45; PULSE 80; RESP 18; RESP 24; O2SAT 98
[2021-09-13] MEDS: morphine 4 mg/mL SDV 1 mL IVP (02:50)
[2021-09-13] MEDS: LORazepam 2 mg/mL INJ 1 mL 1 MG IVP (03:01)
[2021-09-13 03:52] VITALS: BP 115/70; PULSE 77; RESP 18; O2SAT 99
== END 2021-09-13 03:54 | disposition home or self-care (01) ==
PROVIDERS: Emergency Provider Emergency Medicine
DX: R11.10 Vomiting, unspecified (principal); R10.84 Generalized abdominal pain; R16.0 Hepatomegaly, not elsewhere classified; F17.290 Nicotine dependence, other tobacco product, uncomplicated
CPT/HCPCS: 74177; 80053; 81003; 83690; 84703; 85025; 96361; 96374; 96375; 96376; 99284; J2060; J2270; J2405; J7030; Q9967

== ENCOUNTER → 2021-10-05 13:26 | Outpatient (BNVA) | payer MEDICAID, SELFPAY | PROVIDERS: PCP Nurse Practitioner Family; Referring Provider Nurse Practitioner Family; Visit Provider Surgery | DX: K92.1 Melena (principal); K92.0 Hematemesis; R10.9 Unspecified abdominal pain; F17.290 Nicotine dependence, other tobacco product, uncomplicated | CPT/HCPCS: 99203 ==

== ENCOUNTER 2023-06-08 12:03 | Emergency (ER) | payer BC, MEDICAID, SELFPAY ==
[2023-06-08 12:05] VITALS: BP 99/57; PULSE 99; RESP 18; TEMP 36.8; O2SAT 97; BMI 37.2
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
== END 2023-06-08 15:17 | disposition home or self-care (01) ==
PROVIDERS: Emergency Provider Emergency Medicine
DX: M79.641 Pain in right hand (principal); F17.290 Nicotine dependence, other tobacco product, uncomplicated; V89.2XXA Person injured in unspecified motor-vehicle accident, traffic, initial encounter
CPT/HCPCS: 73080; 73130; 99283

== ENCOUNTER → 2025-02-11 13:09 | Outpatient (BNVA) | payer MEDICAID, SELFPAY | PROVIDERS: Visit Provider Obstetrics & Gynecology | DX: Z34.90 Encounter for supervision of normal pregnancy, unspecified, unspecified trimester (principal) | CPT/HCPCS: 84315 ==

== ENCOUNTER → 2025-02-17 13:39 | Outpatient (BNVA) | payer MEDICAID, SELFPAY | PROVIDERS: Visit Provider Obstetrics & Gynecology | DX: Z36.89 Encounter for other specified antenatal screening (principal); Z3A.22 22 weeks gestation of pregnancy | CPT/HCPCS: 76805 ==

== ENCOUNTER → 2025-02-26 10:09 | Outpatient (BNVA) | payer MEDICAID, SELFPAY | PROVIDERS: Visit Provider Obstetrics & Gynecology | DX: Z34.90 Encounter for supervision of normal pregnancy, unspecified, unspecified trimester (principal) | CPT/HCPCS: 84315 ==

== ENCOUNTER → 2025-03-12 08:20 | Outpatient (BNVA) | payer MEDICAID, SELFPAY | PROVIDERS: Visit Provider Obstetrics & Gynecology | DX: Z34.82 Encounter for supervision of other normal pregnancy, second trimester (principal) | CPT/HCPCS: 84315 ==

== ENCOUNTER 2025-03-18 17:21 | Outpatient (CLI) | payer MEDICAID, SELFPAY ==
[2025-03-18] VITALS (7 sets, daily range): BP systolic 90–109; BP diastolic 53–63; PULSE 65–82; RESP 17; TEMP 35.4–35.7; O2SAT 98–99; BMI 43.9
[2025-03-18 19:04] LABS: Hematocrit 31.3 % (36-47); Hemoglobin 9.80 g/dL (11.27-16.99); Mean Corpuscular HGB Conc 31.3 g/dL (30-55); Mean Corpuscular Hemoglobin 27.7 pg (27-33); Mean Corpuscular Volume 88.4 fl (85-98); Nucleated Red Blood Cells % 0 %; Platelet Count 146 10^3/cmm (157-399); Red Blood Count 3.54 10^6/uL (3.85-5.65); White Blood Count 10.46 10^3/uL (3.29-11.43)
== END 2025-03-18 19:38 | disposition home or self-care (01) ==
LOC: OPOB 17:23 → OBGYN 17:24
PROVIDERS: Visit Provider Obstetrics & Gynecology
DX: O26.899 Other specified pregnancy related conditions, unspecified trimester (principal); Z3A.00 Weeks of gestation of pregnancy not specified; R42 Dizziness and giddiness; H53.8 Other visual disturbances
CPT/HCPCS: 36415; 36416; 82962; 85025; 99211; J7121

== ENCOUNTER → 2025-04-02 09:04 | Outpatient (BNVA) | payer MEDICAID, SELFPAY | PROVIDERS: Visit Provider Obstetrics & Gynecology | DX: Z34.03 Encounter for supervision of normal first pregnancy, third trimester (principal); Z3A.28 28 weeks gestation of pregnancy | CPT/HCPCS: 82950; 84315; 85025 ==

== ENCOUNTER → 2025-04-28 08:59 | Outpatient (BNVA) | payer MEDICAID, SELFPAY | PROVIDERS: Visit Provider Obstetrics & Gynecology | DX: Z34.90 Encounter for supervision of normal pregnancy, unspecified, unspecified trimester (principal); Z34.80 Encounter for supervision of other normal pregnancy, unspecified trimester | CPT/HCPCS: 82950; 84315 ==

== ENCOUNTER → 2025-05-04 08:00 | Outpatient (BNVA) | payer MEDICAID, SELFPAY | PROVIDERS: Visit Provider Obstetrics & Gynecology | DX: Z34.83 Encounter for supervision of other normal pregnancy, third trimester (principal) | CPT/HCPCS: 82951; 82952; 85025 ==

== ENCOUNTER 2025-05-17 11:40 | Outpatient (CLI) | payer MEDICAID, SELFPAY ==
[2025-05-17 11:40] VITALS: BMI 44.2
[2025-05-17 12:04] VITALS: BP 109/55; PULSE 75; RESP 16; TEMP 37.1
[2025-05-17 12:10] VITALS: RESP 16
[2025-05-17 12:31] LABS: Glucose Urine UA Negative (Normal); Nitrate Urine Negative (Negative); Specific Gravity, Urine 1.028 (1.005-1.030)
[2025-05-17 12:36] VITALS: BP 98/54; PULSE 74
[2025-05-17 13:09] VITALS: BP 98/54; PULSE 74; RESP 16; TEMP 37.1; O2SAT 98
[2025-05-17 13:10] LABS: UA Slide Review UA Slide Review Perf
== END 2025-05-17 13:10 | disposition home or self-care (01) ==
LOC: OPOB 11:51 → OBGYN 11:51
PROVIDERS: Visit Provider Obstetrics & Gynecology
DX: O26.859 Spotting complicating pregnancy, unspecified trimester (principal); Z3A.00 Weeks of gestation of pregnancy not specified; R10.9 Unspecified abdominal pain
CPT/HCPCS: 59025; 81001; 99211

== ENCOUNTER → 2025-05-27 08:27 | Outpatient (BNVA) | payer MEDICAID, SELFPAY | PROVIDERS: Visit Provider Obstetrics & Gynecology | DX: Z34.93 Encounter for supervision of normal pregnancy, unspecified, third trimester (principal); Z3A.36 36 weeks gestation of pregnancy | CPT/HCPCS: 84315; 87081 ==

== ENCOUNTER → 2025-06-04 07:59 | Outpatient (BNVA) | payer MEDICAID, SELFPAY | PROVIDERS: Visit Provider Obstetrics & Gynecology | DX: Z3A.37 37 weeks gestation of pregnancy (principal) | CPT/HCPCS: 84315 ==

== ENCOUNTER 2025-06-09 19:49 | Outpatient (CLI) | payer MEDICAID, SELFPAY ==
[2025-06-09 20:00] VITALS: BMI 44.2
[2025-06-09 20:05] VITALS: RESP 18
[2025-06-09 20:06] VITALS: BP 132/70; PULSE 100
[2025-06-09 20:07] VITALS: TEMP 36.6
[2025-06-09 20:16] VITALS: TEMP 36.7
[2025-06-09 20:28] VITALS: BP 100/57; PULSE 77
[2025-06-09 20:40] VITALS: BP 100/57; PULSE 77; RESP 16; TEMP 36.7; O2SAT 98
== END 2025-06-09 20:46 | disposition home or self-care (01) ==
LOC: OPOB 19:51 → OBGYN 19:52
PROVIDERS: Visit Provider Obstetrics & Gynecology
DX: O36.8190 Decreased fetal movements, unspecified trimester, not applicable or unspecified (principal); Z3A.00 Weeks of gestation of pregnancy not specified; R10.9 Unspecified abdominal pain
CPT/HCPCS: 59025; 84315; 99211